=== PATIENT | female | born 1950 | race Caucasian/White ===

== ENCOUNTER 2018-01-20 10:33 | Inpatient (IN) ==
--- NOTE | 2018-01-20 10:53 | ED ---
HPI General Chief complaint: Weakness Stated complaint: Weakness Time Seen by Provider: 01/20/18 10:45 Source: patient and family Mode of arrival: ambulatory Limitations: no limitations History of Present Illness HPI Narrative: 67-year-old female patient with previous history of a stroke, presents to the ER today because she has noticed over the last few days that she has had increased trouble walking, feels like is her right leg is weaker, having some trouble talking, and has noticed some headaches. She denies any chest pains, trouble breathing, or any other symptoms. She is on daily baby aspirin. Related Data Home Medications Medication Instructions Recorded Confirmed aspirin [Aspir-81] 81 mg PO DAILY 01/20/18 01/20/18 clonazepam [Klonopin] 1 mg PO HS 01/20/18 01/20/18 glimepiride 4 mg PO QAM 01/20/18 01/20/18 lisinopril 5 mg PO DAILY 01/20/18 01/20/18 metformin 1,000 mg PO BID 01/20/18 01/20/18 simvastatin 5 mg PO QPM 01/20/18 01/20/18 zolpidem [Ambien] 10 mg PO HS 01/20/18 01/20/18 Allergies Allergy/AdvReac Type Severity Reaction Status Date / Time latex Allergy Hives Verified 01/20/18 10:47 Penicillins Allergy Shortness Verified 01/20/18 10:47 of Breath sulfamethoxazole Allergy Shortness Verified 01/20/18 10:47 [From Bactrim] of Breath trimethoprim [From Bactrim] Allergy Shortness Verified 01/20/18 10:47 of Breath Review of Systems Except as stated in HPI: all other systems reviewed are negative [facility] Medical History Medical History Anxiety (Acute) CVA (cerebral vascular accident) (Acute) Diabetes (Acute) H/O: hysterectomy (Acute) Hyperlipemia (Acute) Hypertension (Acute) Social History Social History Substance History: No History of Abuse Second Hand Smoke Exposure: No Smoking Status: Former smoker How Often Do You Have a Drink Containing Alcohol: Monthly or less Recent Out of Country Travel within the Last 8 Weeks: No Exam Narrative Exam Narrative: GENERAL: Well-developed elderly white female patient currently in moderate distress. Awake and oriented 3. SKIN: Focused skin assessment warm/dry. HEAD: Atraumatic. Normocephalic. EYES: Pupils equal and round. No scleral icterus. No injection or drainage. ENT: No nasal bleeding or discharge. Mucous membranes pink and moist. NECK: Trachea midline. No JVD. CARDIOVASCULAR: Regular rate and rhythm. No murmur appreciated. RESPIRATORY: No accessory muscle use. Clear to auscultation. Breath sounds equal bilaterally. GASTROINTESTINAL: Abdomen soft, non-tender, nondistended. Hepatic and splenic margins not palpable. MUSCULOSKELETAL: No obvious deformities. No clubbing. No cyanosis. No edema. NEUROLOGICAL: Awake and alert. No obvious cranial nerve deficits. Right-sided weakness, with right upper and lower extremity pronator drift. Normal speech. PSYCHIATRIC: Appropriate mood and affect; insight and judgment normal. Course Hospital Course: Initial CT of the brain was unremarkable. EKG did not show significant dysrhythmias. Lab work was fairly unremarkable. She does have some notable right-sided weakness and at this point my plan would be to admit her for further evaluation. Case was discussed with Dr. Rowan for admission. She was given aspirin in the ER. She is asking me to put in for an MRI for further evaluation as well. Initial Documented Vital Signs Temperature 98.4 F 01/20/18 10:42 Pulse Rate 57 L 01/20/18 10:42 Respiratory Rate 16 01/20/18 10:42 Blood Pressure 142/66 H 01/20/18 10:42 Pulse Oximetry 99 01/20/18 10:42 Last Documented Vital Signs Temperature 98.4 F 01/20/18 10:42 Pulse Rate 72 01/20/18 12:36 Respiratory Rate 16 01/20/18 10:42 Blood Pressure 152/66 H 01/20/18 12:36 Pulse Oximetry 96 01/20/18 11:13 Medical Decision Making MDM Narrative Medical decision making narrative: Patient symptoms started since last night, she would not be a TPA candidate. Patient had negative CAT scan and was treated with aspirin. Planning to admit for further evaluation and neurology evaluation. Patient is admitted to hospitalist service for admission. Differential Diagnosis Differential Diagnosis: CVA versus other acute intracranial processes versus electrolyte abnormalities Lab Data Result diagrams: 01/20/18 11:10 01/20/18 11:10 Lab Results 01/20/18 01/20/18 01/20/18 Range/Units 11:10 11:10 12:02 WBC 6.7 (4.0-11.0) th/mm3 RBC 4.01 (4.00-5.30) mil/mm3 Hgb 11.6 (11.6-15.3) gm/dL Hct 35.4 (35.0-46.0) % MCV 88.4 (80.0-100.0) fL MCH 29.0 (27.0-34.0) pg MCHC 32.8 (32.0-36.0) % RDW 14.4 (11.6-17.2) % Plt Count 219 (150-450) th/mm3 MPV 8.8 (7.0-11.0) fL Neut % (Auto) 61.8 (16.0-70.0) % Lymph % (Auto) 26.8 (9.0-44.0) % [place] % (Auto) 7.9 (0.0-8.0) % Eos % (Auto) 3.1 (0.0-4.0) % Baso % (Auto) 0.4 (0.0-2.0) % Neut # (Auto) 4.1 (1.8-7.7) th/mm3 Lymph # (Auto) 1.8 (1.0-4.8) th/mm3 [place] # (Auto) 0.5 (0.0-0.9) th/mm3 Eos # (Auto) 0.2 (0.0-0.4) th/mm3 Baso # (Auto) 0.0 (0.0-0.2) th/mm3 WBC Differential . Differential Comment Auto diff final Sodium 143 (136-145) meq/L Potassium 4.6 (3.5-5.1) meq/L Chloride 108 H (98-107) meq/L Carbon Dioxide 25.7 (21.0-32.0) meq/L Anion Gap 9 (5-15) meq/L BUN 15 (7-18) mg/dL Creatinine 1.01 H (0.50-1.00) mg/dL Estimated GFR 55 L (>89) mL/min Random Glucose 104 (74-106) mg/dL Calcium 9.0 (8.5-10.1) mg/dL Total Bilirubin 0.3 (0.2-1.0) mg/dL AST 12 L (15-37) U/L ALT 17 (10-53) U/L Alkaline Phosphatase 64 (45-117) U/L Troponin I Less than 0.02 L (0.02-0.05) ng/mL Total Protein 7.3 (6.4-8.2) g/dL Albumin 3.6 (3.4-5.0) g/dL Urine Color Yellow (Yellw/Straw) Urine Clarity Hazy H (Clear) Urine pH 5.0 (5.0-8.5) Ur Specific [place] 1.011 (1.002-1.035) Urine Protein Negative (Neg-Trace) mg/dL Urine Glucose (UA) Negative (Negative) mg/dL Urine Ketones Negative (Negative) mg/dL Urine Occult Blood Small H (Negative) Urine Nitrate Positive H (Negative) Urine Bilirubin Negative (Negative) Urine Urobilinogen Less than 2 (Less than 2) mg/dL Ur Leukocyte Esterase Trace H (Negative) Urine RBC Less than 1 (0-3) /hpf Urine WBC 13 H (0-5) /hpf Urine WBC Clumps Rare H (None) Ur Squamous Epith Cells 3 (0-5) /hpf Urine Bacteria Many H (None) /hpf Urine Mucus Few H (Occasional) /lpf Micro UA Comment Culture indicated Urine Culture Comments Culture indicated Imaging Data Radiologist's impression: Head CT 01/20/18 10:50 CONCLUSION: 1. Negative noncontrast head CT. Discharge Plan Discharge Disposition Patient Disposition: 30 Still Patient Discharge Condition Condition: Stable Discharge Details Anticipated Discharge Date: 01/20/18 Diagnosis: Acute CVA (cerebrovascular accident) Physicians Team ED Provider: Augustine Mac Primary Care Provider: Primary Care JustineiGhada Rxs /Orders / Referrals /Forms Prescriptions: No Action clonazepam [Klonopin] 1 mg Tablet 1 mg PO HS RF: 0 aspirin [Aspir-81] 81 mg Tablet,Delayed Release (Dr/Ec) 81 mg PO DAILY RF: 0 simvastatin 5 mg Tablet 5 mg PO QPM RF: 0 metformin 1,000 mg Tablet 1,000 mg PO BID RF: 0 glimepiride 4 mg Tablet 4 mg PO QAM RF: 0 lisinopril 5 mg Tablet 5 mg PO DAILY RF: 0 zolpidem [Ambien] 10 mg Tablet 10 mg PO HS RF: 0 Discharge Interventions Interventions: Vital Signs Last Done: 01/20/18 12:36 Status ED Status: With Doctor
[2018-01-20 11:32] LABS: Baso % (Auto) 0.4 % (0.0-2.0); Eos # (Auto) 0.2 th/mm3 (0.0-0.4); Eos % (Auto) 3.1 % (0.0-4.0); Hematocrit 35.4 % (35.0-46.0); Hemoglobin 11.6 gm/dL (11.6-15.3); Lymph # (Auto) 1.8 th/mm3 (1.0-4.8); Lymph % (Auto) 26.8 % (9.0-44.0); Mean Corpuscular HGB Conc 32.8 % (32.0-36.0); Mean Corpuscular Volume 88.4 fL (80.0-100.0); Mean Platelet Volume 8.8 fL (7.0-11.0); Mono # (Auto) 0.5 th/mm3 (0.0-0.9); Mono % (Auto) 7.9 % (0.0-8.0); Neut # (Auto) 4.1 th/mm3 (1.8-7.7); Neut % (Auto) 61.8 % (16.0-70.0); Platelet Count 219 th/mm3 (150-450); Red Blood Count 4.01 mil/mm3 (4.00-5.30); Red Cell Distribution Width 14.4 % (11.6-17.2); White Blood Count 6.7 th/mm3 (4.0-11.0)
--- NOTE | 2018-01-20 11:51 | CT ---
EXAM DATE: 01/20/2018 11:48 AM EDT AGE/SEX: 67 years / Female INDICATIONS: Increased weakness, difficulty ambulating, headache for 3 days CLINICAL DATA: This is the patient's initial encounter. Patient reports that signs and symptoms have been present for 1 day and indicates a pain score of 3/10. MEDICAL/SURGICAL HISTORY: Cerebrovascular disease. Diabetes. Hysterectomy. RADIATION DOSE: 35.79 CTDI (mGy) COMPARISON: No prior exams available for comparison. TECHNIQUE: CT of the head without contrast. Using automated exposure control and adjustment of the mA and/or kV according to patient size, radiation dose was kept as low as reasonably achievable to ob tain optimal diagnostic quality images. DICOM format image data is available electronically for revi ew and comparison. FINDINGS: Cerebrum: The ventricles are normal for age. No evidence of midline shift, mass lesion, hemorrhage or acute infarction. No extraaxial fluid collections are seen. Posterior Fossa: The cerebellum and brainstem are intact. The 4th ventricle is midline. The cerebe llopontine angle is unremarkable. Extracranial: The visualized portion of the orbits is intact. Skull: The calvaria is intact. No evidence of skull fracture. CONCLUSION: 1. Negative noncontrast head CT. Electronically signed by: Gerson Makcey MD 01/20/2018 11:50 AM EDT
[2018-01-20] MEDS ORDERED: Aspirin 325 MG Tablet PO ONE (11:52)
[2018-01-20 12:04] LABS: Anion Gap 9 meq/L (5-15); Blood Urea Nitrogen 15 mg/dL (7-18); Carbon Dioxide 25.7 meq/L (21.0-32.0); Chloride 108 meq/L (98-107); Potassium 4.6 meq/L (3.5-5.1); Sodium 143 meq/L (136-145)
[2018-01-20 12:05] LABS: Alanine Aminotransferase 17 U/L (10-53); Albumin 3.6 g/dL (3.4-5.0); Alkaline Phosphatase 64 U/L (45-117); Aspartate Aminotransferase 12 U/L (15-37); Glomerular Filtration Rate 55 mL/min (>89); Glucose,Random 104 mg/dL (74-106); Total Protein 7.3 g/dL (6.4-8.2)
[2018-01-20 12:30] LABS: Bacteria,Urine Many /hpf; Bilirubin,Urine Negative (Negative); Clarity,Urine Hazy (Clear); Color,Urine Yellow (Yellw/Straw); Glucose,Urine (UA) Negative (Negative); Leukocyte Esterase,Urine Trace (Negative); Mucus,Urine Few /lpf (Occasional); Nitrite,Urine Positive (Negative); Specific Gravity,Urine 1.011 (1.002-1.035); Squamous Epithelial Cell,Urine 3 /hpf (0-5)
[2018-01-20] MEDS ORDERED: Dextrose 5%/NaCl 0.9% Inj 1,000 ML IV.CONT SCH (13:30)
--- NOTE | 2018-01-20 14:35 | MR ---
EXAM DATE: 01/20/2018 2:15 PM EDT AGE/SEX: 67 years / Female INDICATIONS: Right sided weakness. CLINICAL DATA: This is the patient's initial encounter. Patient reports that signs and symptoms have been present for 1 day and indicates a pain score of 0/10. MEDICAL/SURGICAL HISTORY: Stroke. Diabetes mellitus type II. Hypertension. Hysterectomy. Blad wanda tack. Right shoulder. [place] [facility] [place]. . TECHNIQUE: Multiplanar, multisequence examination of the brain was performed without contrast. FINDINGS: Cerebrum: The ventricles are normal for age. No evidence of midline shift, mass lesion, hemorrhage or acute infarction. No extraaxial fluid collections are seen. The pituitary gland and suprasellar cistern are normal in configuration. White Matter: On the FLAIR weighted images there are are several small punctate areas of scattered i ncreased signal consistent with chronic small vessel ischemic changes. There is a small lacunar infar ct in the left basal ganglia. Posterior Fossa: The cerebellum and brainstem are intact. The 4th ventricle is midline. The cerebel lopontine angle is unremarkable. The cerebellar tonsils are normal in position. Diffusion Imaging: No focal areas of restricted diffusion are seen. No evidence of acute infarction . Extracranial: The visualized portions of the orbits and paranasal sinuses are unremarkable. CONCLUSION: 1. No acute hemorrhage, mass or evidence of infarction. 2. Small lacunar infarct in the left basal ganglia. 3. Mild atrophy and chronic small vessel ischemic change. Electronically signed by: Gerson Mackey MD 01/20/2018 2:33 PM EDT
[2018-01-20] MEDS: levoFLOXacin 500 MG Tablet PO SCH (14:36)
--- NOTE | 2018-01-20 15:26 | US ---
EXAM DATE: 01/20/2018 3:19 PM EDT AGE/SEX: 67 years / Female INDICATIONS: Transient ischemic attack. CLINICAL DATA: This is the patient's initial encounter. Patient reports that signs and symptoms have been present for 1 day and indicates a pain score of 0/10. MEDICAL/SURGICAL HISTORY: Stroke. Hypertension. Anxiety. Hyperlipidemia. Hysterectomy. COMPARISON: No prior exams available for comparison. VELOCITY PARAMETERS: ICA/CCA Ratio: Right 1.5 , Left 1.3 ICA: Right 138 cm/sec, Left 124 cm/sec CCA: Right 90 cm/sec, Left 98 cm/sec ECA: Right 206 cm/sec, Left 126 cm/sec Vertebral: Right 61 cm/sec antegrade, Left 88 cm/sec antegrade FINDINGS: Right Carotid: Mild arteriosclerotic plaque is visualized.The waveforms are within normal limits. Left Carotid: Mild to moderate arteriosclerotic plaque is visualized. The waveforms are within liliane l limits. Other: None. CONCLUSION: Mild to moderate plaquing with less than 40% diameter stenosis by velocity criteria. Electronically signed by: Gerson Mackey MD 01/20/2018 3:24 PM EDT
--- NOTE | 2018-01-20 16:21 | P.CONNEU ---
History of Present Illness Service: Neurology Primary Care Provider: No Primary Care Physician History of Present Illness: 67-year-old female admitted for possible stroke. Takes aspirin at home. CT brain scan no acute lesion. MRI brain scan does not show any acute stroke. Feels better now. History of previous stroke treated in the [place] area affected her right side when she is getting a lot of function back. Sounds like she may have gotten IV TPA at that time. Has history of diabetes hypertension dyslipidemia. Takes aspirin daily. Denies any history of atrial fibrillation or any clotting disorder. Review of Systems All other systems reviewed negative except as stated in [facility]PI [facility] - History History Provided By: Patient - Medical History Medical History: Medical History (Last Reviewed 01/21/18 @ 07:31 by Gerson Zhu) Anxiety CVA (cerebral vascular accident) Diabetes H/O: hysterectomy Hyperlipemia Hypertension - Tobacco History Second Hand Smoke Exposure: No Smoking Status: Former smoker - Alcohol History How Often Do You Have a Drink Containing Alcohol: Monthly or less - Substance Use History Substance History: No History of Abuse - Travel History Recent Travel Out of the Country Within the Last 8 Weeks: No - Immunization History Tetanus Immunization: <5 Years Hx Influenza Vaccine This Season: Yes Medications and Allergies Active Medications: Active Medications Dextrose/Sodium Chloride (D5w/Normal Saline Inj) 1,000 mls @ 70 mls/hr IV.CONT .[id number] [facility] Last Admin: 01/20/18 14:36 Dose: 70 mls/hr Levofloxacin (Levaquin) 500 mg PO Q24H [facility] Last Admin: 01/20/18 14:36 Dose: 500 mg Sodium Chloride (Ns Flush) 2 ml IV.FLUSH PRN PRN PRN Reason: FLUSH AFTER USING IV ACCESS Allergies Allergy/AdvReac Type Severity Reaction Status Date / Time latex Allergy Hives Verified 01/20/18 10:47 Penicillins Allergy Shortness Verified 01/20/18 10:47 of Breath sulfamethoxazole Allergy Shortness Verified 01/20/18 10:47 [From Bactrim] of Breath trimethoprim [From Bactrim] Allergy Shortness Verified 01/20/18 10:47 of Breath Home Medications Medication Instructions Recorded Confirmed Type aspirin [Aspir-81] 81 mg PO DAILY 01/20/18 01/20/18 History clonazepam [Klonopin] 1 mg PO HS 01/20/18 01/20/18 History glimepiride 4 mg PO QAM 01/20/18 01/20/18 History lisinopril 5 mg PO DAILY 01/20/18 01/20/18 History metformin 1,000 mg PO BID 01/20/18 01/20/18 History simvastatin 5 mg PO QPM 01/20/18 01/20/18 History zolpidem [Ambien] 10 mg PO HS 01/20/18 01/20/18 History Exam Vital signs: Vital Signs 01/20/18 10:42 01/20/18 11:13 01/20/18 12:36 Temperature 98.4 F Pulse Rate 57 L 72 Respiratory Rate 16 Blood Pressure 142/66 H 152/66 H Pulse Oximetry 99 96 Intake & Output 01/19/18 01/20/18 01/20/18 18:59 06:59 18:59 Weight 95.254 kg Narrative: GENERAL: Well nourished patient, in no apparent distress. SKIN: Warm and dry. HEAD: Atraumatic. Normocephalic. EYES: Pupils equal and round. No scleral icterus. No injection or drainage. ENT: Nose without drainage. NECK: Trachea midline. Neck is supple. CARDIOVASCULAR: Normal rate and regular rhythm without murmurs, RESPIRATORY: Symmetric, unlabored respirations. Breath sounds equal and clear to auscultation bilaterally. No wheezes, crackles, rales, or rhonchi. GASTROINTESTINAL: Abdomen soft, non-tender, non-distended. NEUROLOGICAL: Awake alert oriented 3 fluent articulate no aphasia. Extraocular movements intact no facial asymmetry tongue midline able raise upper extremity gravity without difficulty, no pronator drift - Constitutional no acute distress - Routine HEENT Exam Head: Present: normocephalic Eye: Present: EOMI Results - Labs CBC & Chem 7: 01/20/18 11:10 01/20/18 11:10 Labs: Laboratory Results - last 24 hr 01/20/18 01/20/18 01/20/18 11:10 11:10 12:02 WBC 6.7 RBC 4.01 Hgb 11.6 Hct 35.4 MCV 88.4 MCH 29.0 MCHC 32.8 RDW 14.4 Plt Count 219 MPV 8.8 Neut % (Auto) 61.8 Lymph % (Auto) 26.8 [place] % (Auto) 7.9 Eos % (Auto) 3.1 Baso % (Auto) 0.4 Neut # (Auto) 4.1 Lymph # (Auto) 1.8 [place] # (Auto) 0.5 Eos # (Auto) 0.2 Baso # (Auto) 0.0 WBC Differential . Differential Comment Auto diff final Sodium 143 Potassium 4.6 Chloride 108 H Carbon Dioxide 25.7 Anion Gap 9 BUN 15 Creatinine 1.01 H Estimated GFR 55 L Random Glucose 104 Calcium 9.0 Total Bilirubin 0.3 AST 12 L ALT 17 Alkaline Phosphatase 64 Troponin I Less than 0.02 L Total Protein 7.3 Albumin 3.6 Urine Color Yellow Urine Clarity Hazy H Urine pH 5.0 Ur Specific [place] 1.011 Urine Protein Negative Urine Glucose (UA) Negative Urine Ketones Negative Urine Occult Blood Small H Urine Nitrate Positive H Urine Bilirubin Negative Urine Urobilinogen Less than 2 Ur Leukocyte Esterase Trace H Urine RBC Less than 1 Urine WBC 13 H Urine WBC Clumps Rare H Ur Squamous Epith Cells 3 Urine Bacteria Many H Urine Mucus Few H Micro UA Comment Culture indicated Urine Culture Comments Culture indicated - Imaging Impressions Carotid Doppler Study 01/20/18 00:00 CONCLUSION: Mild to moderate plaquing with less than 40% diameter stenosis by velocity criteria. Head CT 01/20/18 10:50 CONCLUSION: 1. Negative noncontrast head CT. Head MRI 01/20/18 13:21 CONCLUSION: 1. No acute hemorrhage, mass or evidence of infarction. 2. Small lacunar infarct in the left basal ganglia. 3. Mild atrophy and chronic small vessel ischemic change. Review/Management - Diagnosis (1) TIA (transient ischemic attack) Code(s): G45.9 - Transient cerebral ischemic attack, unspecified Status: Acute Current Visit: Yes (2) Diabetes Code(s): E11.9 - Type 2 diabetes mellitus without complications Status: Acute Current Visit: Yes (3) Hypertension Code(s): I10 - Essential (primary) hypertension Status: Acute Current Visit : Yes (4) Obesity Code(s): E66.9 - Obesity, unspecified Status: Acute Current Visit: Yes (5) Hyperlipidemia associated with type 2 diabetes mellitus Code(s): E11.69 - Type 2 diabetes mellitus with other specified complication; E78.5 - Hyperlipidemia, unspecified Status: Acute Current Visit: Yes - Review/Management Plan: Probable TIA Recommendations Add Plavix to aspirin Follow-up rest of studies Hypertension, diabetic, lipid control Exercise Weight loss (1) TIA (transient ischemic attack) Qualifiers: Transient cerebral ischemia type: carotid artery syndrome (hemispheric) Qualified Code(s): G45.1 - Carotid artery syndrome (hemispheric) (2) Diabetes Qualifiers: Diabetes mellitus type: other specified (including ANN-MARIE) Diabetes mellitus complication detail: with polyneuropathy (3) Hypertension Qualifiers: Hypertension type: essential hypertension Qualified Code(s): I10 - Essential (primary) hypertension (4) Obesity Qualifiers: Obesity classification: adult class 2 (BMI 35 - 39.9)
[2018-01-20] MEDS ORDERED: Enoxaparin Inj 40 MG/0.4 ML Syringe SQ SCH (16:30)
[2018-01-20] MEDS: Enoxaparin Inj 40 MG/0.4 ML Syringe SQ SCH (17:21)
[2018-01-20] MEDS: Sod Chloride 0.9% Inj 1,000 ML IV.CONT SCH (17:22)
--- NOTE | 2018-01-20 17:31 | MR ---
EXAM DATE: 01/20/2018 5:16 PM EDT AGE/SEX: 67 years / Female INDICATIONS: Aneurysm. CLINICAL DATA: This is the patient's initial encounter. Patient reports that signs and symptoms have been present for 1 day and indicates a pain score of 2/10. MEDICAL/SURGICAL HISTORY: Hypercholesterolemia. Hypertension. Skin cancer. Hysterectomy. Knee sx, Rt shoulder sx, Bladder sling. COMPARISON: MRI of the brain 01/20/2018. TECHNIQUE: 3D [id number] MRA was performed. Source images, multiplanar STS MIP, and 3D volum e MIP reconstructions were reviewed. FINDINGS: There is excellent visualization of the major intracranial arteries out to the second-order branch ve ssels. Tandem areas of moderate luminal narrowing secondary to atherosclerotic plaque involving proxi mal M2 branches on the right. The left vertebral artery is dominant and the main supply to the basila r. Persistent circulation noted on the right. There is no evidence for aneurysm, vessel truncat ion , and no evidence for vascular malformation. CONCLUSION: 1. Atherosclerotic disease. 2. No acute intracranial abnormality. Electronically signed by: Rudolph Copeland MD 01/20/2018 5:30 PM EDT
--- NOTE | 2018-01-20 18:11 | ECG ---
Date Performed: 01/20/2018 Time Performed: 11:27:29 PTAGE: 67 years EKG: SINUS BRADYCARDIA LOW QRS VOLTAGE IN PRECORDIAL LEADS SEPTAL MYOCARDIAL INFARCTION ABNORMAL ECG NO PREVIOUS TRACING DOCTOR: Denia Milligan Interpretating Date/Time 01/20/2018 18:09:20
--- NOTE | 2018-01-20 18:46 | P.HP ---
[facility]ness [facility]: Patient is from [facility] here visiting Chief Complaint: Right-sided weakness History of Present Illness: Patient is a very pleasant 67-year-old right-handed female who is visiting here visiting from [place] for vacation. 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 Patient also with history of anxiety disorder. Patient states that for the past 2 days now daughter has noticed that she has been dropping things with her right hand and was noted to be dragging her right leg. Whenever she gets up she does not get enough strength to get up but. Patient also complained of some intermittent right-sided parieto-occipital headache dull in character. Denies any nausea vomiting or fever. This a.m. granddaughter noted some drooping in his in her right eye and alarmed her parents who finally 5 mg up on her and finally convinced her to come to the emergency room. Patient admitted for further evaluation On exam now patient states that her right-sided weakness is baseline near baseline from her CVA from 2013. Inpatient Certification: I certify that the inpatient services were ordered in accordance with Medicare regulations governing the order. This includes certification that hospital inpatient services are reasonable and necessary and in the case of services not specified as inpatient-only under 42 CFR 419.22(n), that they are appropriately provided as inpatient services in accordance to with the 2-midnight benchmark under 43 CFR 412.3(e) Estimated Total Length of Stay (Days): 2 Plans for Post Hospital Care: Not yet determined Review of Systems All other systems reviewed negative except as stated in HPI PMFSH - History History Provided By: Patient - Medical History Medical History: Medical History (Last Reviewed 01/21/18 @ 07:31 by Gerson Zhu) Anxiety CVA (cerebral vascular accident) Diabetes H/O: hysterectomy Hyperlipemia Hypertension - Tobacco History Second Hand Smoke Exposure: No Tobacco Use In Past 30 Days: No Smoking Status: Never smoker - Alcohol History How Often Do You Have a Drink Containing Alcohol: Monthly or less - Substance Use History Substance History: No History of Abuse - Travel History Recent Travel Out of the Country Within the Last 8 Weeks: No - Immunization History Tetanus Immunization: <5 Years Hx Influenza Vaccine This Season: Yes Medications and Allergies Active Medications: Active Medications Aspirin (Ecotrin) 325 mg PO DAILY [facility] Clopidogrel Bisulfate (Plavix) 75 mg PO DAILY [facility] Last Admin: 01/20/18 17:21 Dose: Not Given Enoxaparin Sodium (Lovenox Inj) 40 mg SQ DAILY [facility] Last Admin: 01/20/18 17:21 Dose: Not Given Dextrose/Sodium Chloride (D5w/Normal Saline Inj) 1,000 mls @ 70 mls/hr IV.CONT .[id number] [facility] Last Infusion: 01/20/18 17:35 Dose: 0 mls/hr Sodium Chloride (Ns Inj) 1,000 mls @ 84 mls/hr IV.CONT .[id number] [facility] Last Infusion: 01/20/18 17:34 Dose: 84 mls/hr Levofloxacin (Levaquin) 500 mg PO Q24H [facility] Last Admin: 01/20/18 14:36 Dose: 500 mg Sodium Chloride (Ns Flush) 2 ml IV.FLUSH PRN PRN PRN Reason: FLUSH AFTER USING IV ACCESS Allergies Allergy/AdvReac Type Severity Reaction Status Date / Time latex Allergy Hives Verified 01/20/18 10:47 Penicillins Allergy Shortness Verified 01/20/18 10:47 of Breath sulfamethoxazole Allergy Shortness Verified 01/20/18 10:47 [From Bactrim] of Breath trimethoprim [From Bactrim] Allergy Shortness Verified 01/20/18 10:47 of Breath Home Medications Medication Instructions Recorded Confirmed Type aspirin [Aspir-81] 81 mg PO DAILY 01/20/18 01/20/18 History clonazepam [Klonopin] 1 mg PO HS 01/20/18 01/20/18 History glimepiride 4 mg PO QAM 01/20/18 01/20/18 History lisinopril 5 mg PO DAILY 01/20/18 01/20/18 History metformin 1,000 mg PO BID 01/20/18 01/20/18 History simvastatin 5 mg PO QPM 01/20/18 01/20/18 History zolpidem [Ambien] 10 mg PO HS 01/20/18 01/20/18 History Exam Vital signs: Vital Signs 01/20/18 10:42 01/20/18 11:13 01/20/18 12:36 Temperature 98.4 F Pulse Rate 57 L 72 Respiratory Rate 16 Blood Pressure 142/66 H 152/66 H Pulse Oximetry 99 96 01/20/18 17:30 01/20/18 18:15 Temperature 97.8 F Pulse Rate 63 68 Respiratory Rate 14 24 Blood Pressure 125/68 132/60 Pulse Oximetry 96 97 Intake & Output 01/19/18 01/20/18 01/20/18 18:59 06:59 18:59 Weight 95.254 kg Narrative: Patient is awake alert oriented 3 with clear coherent speech not in acute distress Anicteric sclerae pink palpebral conjunctiva Neck supple no JVD no bruit Chest lungs clear breath sounds no rales no wheezes heart regular rhythm, no murmur Abdomen soft nontender with good bowel bowel sounds Lower extremities no edema no clubbing no cyanosis good peripheral pulses Neurologic exam Awake alert oriented 3 clear speech Cranial nerves grossly intact no deficit Sensory intact grossly Motor mild right-sided weakness which patient states he is near her baseline. Absent Babinski Results - Labs CBC & Chem 7: 01/20/18 11:10 01/20/18 11:10 Labs: Laboratory Results - last 24 hr 01/20/18 01/20/18 01/20/18 11:10 11:10 11:10 WBC 6.7 RBC 4.01 Hgb 11.6 Hct 35.4 MCV 88.4 MCH 29.0 MCHC 32.8 RDW 14.4 Plt Count 219 MPV 8.8 Neut % (Auto) 61.8 Lymph % (Auto) 26.8 [place] % (Auto) 7.9 Eos % (Auto) 3.1 Baso % (Auto) 0.4 Neut # (Auto) 4.1 Lymph # (Auto) 1.8 [place] # (Auto) 0.5 Eos # (Auto) 0.2 Baso # (Auto) 0.0 WBC Differential . Differential Comment Auto diff final Sodium 143 Potassium 4.6 Chloride 108 H Carbon Dioxide 25.7 Anion Gap 9 BUN 15 Creatinine 1.01 H Estimated GFR 55 L Random Glucose 104 Calcium 9.0 Total Bilirubin 0.3 AST 12 L ALT 17 Alkaline Phosphatase 64 Troponin I Less than 0.02 L Total Protein 7.3 Albumin 3.6 Vitamin B12 263 Urine Color Urine Clarity Urine pH Ur Specific [place] Urine Protein Urine Glucose (UA) Urine Ketones Urine Occult Blood Urine Nitrate Urine Bilirubin Urine Urobilinogen Ur Leukocyte Esterase Urine RBC Urine WBC Urine WBC Clumps Ur Squamous Epith Cells Urine Bacteria Urine Mucus Micro UA Comment Urine Culture Comments 01/20/18 12:02 WBC RBC Hgb Hct MCV MCH MCHC RDW Plt Count MPV Neut % (Auto) Lymph % (Auto) [place] % (Auto) Eos % (Auto) Baso % (Auto) Neut # (Auto) Lymph # (Auto) [place] # (Auto) Eos # (Auto) Baso # (Auto) WBC Differential Differential Comment Sodium Potassium Chloride Carbon Dioxide Anion Gap BUN Creatinine Estimated GFR Random Glucose Calcium Total Bilirubin AST ALT Alkaline Phosphatase Troponin I Total Protein Albumin Vitamin B12 Urine Color Yellow Urine Clarity Hazy H Urine pH 5.0 Ur Specific [place] 1.011 Urine Protein Negative Urine Glucose (UA) Negative Urine Ketones Negative Urine Occult Blood Small H Urine Nitrate Positive H Urine Bilirubin Negative Urine Urobilinogen Less than 2 Ur Leukocyte Esterase Trace H Urine RBC Less than 1 Urine WBC 13 H Urine WBC Clumps Rare H Ur Squamous Epith Cells 3 Urine Bacteria Many H Urine Mucus Few H Micro UA Comment Culture indicated Urine Culture Comments Culture indicated - Imaging Impressions Carotid Doppler Study 01/20/18 00:00 CONCLUSION: Mild to moderate plaquing with less than 40% diameter stenosis by velocity criteria. Head CT 01/20/18 10:50 CONCLUSION: 1. Negative noncontrast head CT. Head MRI 01/20/18 13:21 CONCLUSION: 1. No acute hemorrhage, mass or evidence of infarction. 2. Small lacunar infarct in the left basal ganglia. 3. Mild atrophy and chronic small vessel ischemic change. Head MRA 01/20/18 16:21 CONCLUSION: 1. Atherosclerotic disease. 2. No acute intracranial abnormality. Caprini VTE Risk Assessment Caprini VTE Risk Assessment: Moderate/High Risk (score >= 2) Caprini Risk Assessment Model: Point Value = 1 Point Value = 2 Point Value = 3 Point Value = 5 Age 41-60 Minor surgery BMI > 25 kg/m2 Swollen legs Varicose veins or History of unexplained or recurrent spontaneous Oral contraceptives or hormone replacement Sepsis (< 1 month) Serious lung disease, including pneumonia (< 1 month) Abnormal pulmonary function Acute myocardial infarction Congestive heart failure (< 1 month) History of inflammatory bowel disease Medical patient at bed rest Age 61-74 Arthroscopic surgery Major open surgery (> 45 min) Laparoscopic surgery (> 45 min) Malignancy Confined to bed (> 72 hours) Immobilizing plaster cast Central venous access Age >= 75 History of VTE Family history of VTE Factor V Leiden Prothrombin [id number] Lupus anticoagulant Anticardiolipin antibodies Elevated serum homocysteine Heparin-induced thrombocytopenia Other congenital or acquired thrombophilia Stroke (< 1 month) Elective arthroplasty Hip, pelvis, or leg fracture Acute spinal cord injury (< 1 month) Prophylaxis Regimen: Total Risk Factor Score Risk Level Prophylaxis Regimen 0-1 Low Early ambulation 2 Moderate Order ONE of the following: *Sequential Compression Device (SCD) *Heparin 5000 units SQ BID 3-4 Higher Order ONE of the following medications: *Heparin 5000 units SQ TID *Enoxaparin/Lovenox 40 mg SQ daily (WT < 150 kg, CrCl > 30 mL/min) *Enoxaparin/Lovenox 30 mg SQ daily (WT < 150 kg, CrCl > 10-29 mL/min) *Enoxaparin/Lovenox 30 mg SQ BID (WT < 150 kg, CrCl > 30 mL/min) AND/OR *Sequential Compression Device (SCD) 5 or more Highest Order ONE of the following medications: *Heparin 5000 units SQ TID (Preferred with Epidurals) *Enoxaparin/Lovenox 40 mg SQ daily (WT < 150 kg, CrCl > 30 mL/min) *Enoxaparin/Lovenox 30 mg SQ daily (WT < 150 kg, CrCl > 10-29 mL/min) *Enoxaparin/Lovenox 30 mg SQ BID (WT < 150 kg, CrCl > 30 mL/min) AND *Sequential Compression Device (SCD) Assessment and Plan - Plan 67-year-old female with notable risk factors admitted for TIA vs CVA left BG infarct with history of old CVA with mild residual right- sided weakness from September 2013 -MRI shows a small left basal ganglia infarct ? old -neuro exam near baseline -Workup in progress carotid Doppler, Echo, telemetry -Neurology consulted and was seen by Dr. Langford while started on Plavix and aspirin -PT OT consult. History of hypertension -Continue lisinopril 5 mg daily History of hyperlipidemia. Continue simvastatin 5 mg at bedtime History of diabetes type 2 per patient last A1c was 5.6 -Will hold on off metformin with recent contrast study -Follow blood sugars bid and record - restart Glimepiride in am Anxiety disorder. -Continue on clonazepam 1 mg at bedtime. -Ambien 10 mg at bedtime as needed UTI. -Start on Levaquin 500 milligrams p.o. daily - Follow final [employer] result Lovenox for DVT prophylaxis.
[2018-01-20] MEDS ORDERED: Dextrose 50% in Water 50 ML Vial IV.PUSH PRN (19:16)
[2018-01-20] MEDS ORDERED: clonazePAM 1 MG Tablet PO SCH (21:00)
[2018-01-21] MEDS: Sod Chloride 0.9% Inj 1,000 ML IV.CONT SCH ×2 (06:45→19:56)
[2018-01-21] MEDS: Enoxaparin Inj 40 MG/0.4 ML Syringe SQ SCH (08:09)
--- NOTE | 2018-01-21 08:29 | P.PNNEU ---
Subjective Subjective Comments: No acute events reported No headache No chest pain No dyspnea Active Medications: Active Medications Aspirin (Ecotrin) 325 mg PO DAILY [facility]S [facility] Last Admin: 01/21/18 08:08 Dose: 325 mg Clonazepam (Klonopin) 1 mg PO HS [facility]S INCLUDE 234 BEDS AT THE [facility] Last Admin: 01/20/18 21:25 Dose: 1 mg Clopidogrel Bisulfate (Plavix) 75 mg PO DAILY [facility] 234 BEDS AT THE [facility] Last Admin: 01/21/18 08:08 Dose: 75 mg Dextrose (D50w Vial) 50 ml IV.PUSH UNSCH PRN PRN Reason: PER HYPOGLYCEMIA PROTOCOL Enoxaparin Sodium (Lovenox Inj) 40 mg SQ DAILY [facility] 234 BEDS AT THE [facility] Last Admin: 01/21/18 08:09 Dose: 40 mg Glucagon (Glucagon Inj) 1 mg OTHER PRN PRN PRN Reason: for Hypoglycemia Protocol Sodium Chloride (Ns Inj) 1,000 mls @ 84 mls/hr IV.CONT .[id number] [facility]S [facility]CLUDE 234 BEDS AT THE [facility] Last Admin: 01/21/18 06:45 Dose: Not Given Levofloxacin (Levaquin) 500 mg PO Q24H [facility] 234 BEDS AT THE [facility] Last Admin: 01/20/18 14:36 Dose: 500 mg Lisinopril (Prinivil) 5 mg PO DAILY [facility] 234 BEDS AT THE [facility] Last Admin: 01/21/18 08:09 Dose: 5 mg Pravastatin Sodium (Pravachol) 10 mg PO QPM [facility]S [facility]CLUDE 234 BEDS AT THE [facility] Sodium Chloride (Ns Flush) 2 ml IV.FLUSH PRN PRN PRN Reason: FLUSH AFTER USING IV ACCESS Zolpidem Tartrate (Ambien) 10 mg PO HS [facility]CLUDE 234 BEDS AT THE [facility] Last Admin: 01/20/18 21:25 Dose: 10 mg Allergies/Adverse Reactions: Allergies Allergy/AdvReac Type Severity Reaction Status Date / Time latex Allergy Hives Verified 01/20/18 10:47 Penicillins Allergy Shortness Verified 01/20/18 10:47 of Breath sulfamethoxazole Allergy Shortness Verified 01/20/18 10:47 [From Bactrim] of Breath trimethoprim [From Bactrim] Allergy Shortness Verified 01/20/18 10:47 of Breath Review of Systems All other systems reviewed negative except as stated in HPI Physical Exam Vital signs: Vital Signs 01/20/18 10:42 01/20/18 11:13 01/20/18 12:36 Temperature 98.4 F Pulse Rate 57 L 72 Respiratory Rate 16 Blood Pressure 142/66 H 152/66 H Pulse Oximetry 99 96 01/20/18 17:30 01/20/18 18:15 01/20/18 22:00 Temperature 97.8 F 98.4 F Pulse Rate 63 68 64 Respiratory Rate 14 24 17 Blood Pressure 125/68 132/60 139/63 Pulse Oximetry 96 97 96 01/21/18 00:30 01/21/18 05:30 Temperature 97.9 F 98 F Pulse Rate 60 62 Respiratory Rate 17 16 Blood Pressure 130/60 120/59 L Pulse Oximetry 98 100 Intake & Output 01/20/18 01/21/18 01/21/18 18:59 06:59 18:59 Intake Total 1200 / 1200 Balance 1200 / 1200 Weight 95.254 kg 95.2 kg Intake: Oral 1200 / 1200 Other: # Voids 2 1 Date of Last Bowel Movement 01/21/18 # Bowel Movements 0 Narrative: GENERAL: Well nourished patient, in no apparent distress. SKIN: Warm and dry. HEAD: Atraumatic. Normocephalic. EYES: Pupils equal and round. No scleral icterus. No injection or drainage. ENT: Nose without drainage. NECK: Trachea midline. Neck is supple. CARDIOVASCULAR: Normal rate and regular rhythm without murmurs, RESPIRATORY: Symmetric, unlabored respirations. Breath sounds equal and clear to auscultation bilaterally. No wheezes, crackles, rales, or rhonchi. GASTROINTESTINAL: Abdomen soft, non-tender, non-distended. NEUROLOGICAL: Awake alert oriented 3 fluent articulate no aphasia. Extraocular movements intact no facial asymmetry tongue midline able raise upper extremity gravity without difficulty, no pronator drift, distal reduce pinprick in her legs probable diabetic neuropathy - Constitutional no acute distress - Routine HEENT Exam Head: Present: normocephalic, atraumatic Eye: Present: EOMI Objective Laboratory Results - last 24 hr 01/20/18 01/20/18 01/20/18 11:10 11:10 11:10 WBC 6.7 RBC 4.01 Hgb 11.6 Hct 35.4 MCV 88.4 MCH 29.0 MCHC 32.8 RDW 14.4 Plt Count 219 MPV 8.8 Neut % (Auto) 61.8 Lymph % (Auto) 26.8 [place] % (Auto) 7.9 Eos % (Auto) 3.1 Baso % (Auto) 0.4 Neut # (Auto) 4.1 Lymph # (Auto) 1.8 [place] # (Auto) 0.5 Eos # (Auto) 0.2 Baso # (Auto) 0.0 WBC Differential . Differential Comment Auto diff final Sodium 143 Potassium 4.6 Chloride 108 H Carbon Dioxide 25.7 Anion Gap 9 BUN 15 Creatinine 1.01 H Estimated GFR 55 L POC Glucose Random Glucose 104 Calcium 9.0 Total Bilirubin 0.3 AST 12 L ALT 17 Alkaline Phosphatase 64 Troponin I Less than 0.02 L Total Protein 7.3 Albumin 3.6 Vitamin B12 263 Urine Color Urine Clarity Urine pH Ur Specific [place] Urine Protein Urine Glucose (UA) Urine Ketones Urine Occult Blood Urine Nitrate Urine Bilirubin Urine Urobilinogen Ur Leukocyte Esterase Urine RBC Urine WBC Urine WBC Clumps Ur Squamous Epith Cells Urine Bacteria Urine Mucus Micro UA Comment Urine Culture Comments 01/20/18 01/21/18 12:02 07:56 WBC RBC Hgb Hct MCV MCH MCHC RDW Plt Count MPV Neut % (Auto) Lymph % (Auto) [place] % (Auto) Eos % (Auto) Baso % (Auto) Neut # (Auto) Lymph # (Auto) [place] # (Auto) Eos # (Auto) Baso # (Auto) WBC Differential Differential Comment Sodium Potassium Chloride Carbon Dioxide Anion Gap BUN Creatinine Estimated GFR POC Glucose 83 Random Glucose Calcium Total Bilirubin AST ALT Alkaline Phosphatase Troponin I Total Protein Albumin Vitamin B12 Urine Color Yellow Urine Clarity Hazy H Urine pH 5.0 Ur Specific [place] 1.011 Urine Protein Negative Urine Glucose (UA) Negative Urine Ketones Negative Urine Occult Blood Small H Urine Nitrate Positive H Urine Bilirubin Negative Urine Urobilinogen Less than 2 Ur Leukocyte Esterase Trace H Urine RBC Less than 1 Urine WBC 13 H Urine WBC Clumps Rare H Ur Squamous Epith Cells 3 Urine Bacteria Many H Urine Mucus Few H Micro UA Comment Culture indicated Urine Culture Comments Culture indicated Review/Management - Diagnosis (1) TIA (transient ischemic attack) Code(s): G45.9 - Transient cerebral ischemic attack, unspecified Status: Acute Current Visit: Yes (2) Diabetes Code(s): E11.9 - Type 2 diabetes mellitus without complications Status: Acute Current Visit: Yes (3) Hypertension Code(s): I10 - Essential (primary) hypertension Status: Acute Current Visit : Yes (4) Obesity Code(s): E66.9 - Obesity, unspecified Status: Acute Current Visit: Yes (5) Hyperlipidemia associated with type 2 diabetes mellitus Code(s): E11.69 - Type 2 diabetes mellitus with other specified complication; E78.5 - Hyperlipidemia, unspecified Status: Acute Current Visit: Yes - Review/Management Plan: Probable TIA MRI brain negative for acute stroke diffusion-weighted imaging negative MRA brain intracranial atherosclerotic disease Carotid ultrasound less than 50% stenosis Recommendations Add Plavix to aspirin. Aspirin can be discontinued after 3 months Follow-up rest of studies Hypertension, diabetic, lipid control Exercise Weight loss Can be discharged from neurologic standpoint followed up in the outpatient setting by her physicians in [place] where she is from. Where she should consider getting a loop recorder event monitor (1) TIA (transient ischemic attack) Qualifiers: Transient cerebral ischemia type: carotid artery syndrome (hemispheric) Qualified Code(s): G45.1 - Carotid artery syndrome (hemispheric) (2) Diabetes Qualifiers: Diabetes mellitus type: other specified (including ANN-MARIE) Diabetes mellitus complication detail: with polyneuropathy (3) Hypertension Qualifiers: Hypertension type: essential hypertension Qualified Code(s): I10 - Essential (primary) hypertension (4) Obesity Qualifiers: Obesity classification: adult class 2 (BMI 35 - 39.9)
[2018-01-21] MEDS ORDERED: Lisinopril 5 MG Tablet PO SCH (09:00)
[2018-01-21 09:27] LABS: Chol/HDL Ratio 3.65 Ratio; HDL Cholesterol 35.3 mg/dL (40.0-60.0)
--- NOTE | 2018-01-21 09:58 | P.PN ---
Subjective Interval history: overnight- no acute events feels great up and ambulating no headaches good BS readings Physical Exam Vital signs: Vital Signs 01/20/18 10:42 01/20/18 11:13 01/20/18 12:36 Temperature 98.4 F Pulse Rate 57 L 72 Respiratory Rate 16 Blood Pressure 142/66 H 152/66 H Pulse Oximetry 99 96 01/20/18 17:30 01/20/18 18:15 01/20/18 22:00 Temperature 97.8 F 98.4 F Pulse Rate 63 68 64 Respiratory Rate 14 24 17 Blood Pressure 125/68 132/60 139/63 Pulse Oximetry 96 97 96 01/21/18 00:30 01/21/18 05:30 Temperature 97.9 F 98 F Pulse Rate 60 62 Respiratory Rate 17 16 Blood Pressure 130/60 120/59 L Pulse Oximetry 98 100 Intake & Output 01/20/18 01/21/18 01/21/18 18:59 06:59 18:59 Intake Total 1200 / 1200 Balance 1200 / 1200 Weight 95.254 kg 95.2 kg Intake: Oral 1200 / 1200 Other: # Voids 2 1 Date of Last Bowel Movement 01/21/18 # Bowel Movements 0 Narrative: awake and alert, speech clear, in no apparent distress. SKIN: Warm and dry. HEAD: Atraumatic. Normocephalic. EYES: Pupils equal and round. No scleral icterus. No injection or drainage. ENT: Nose without drainage. NECK: Trachea midline. Neck is supple. CARDIOVASCULAR: Normal rate and regular rhythm without murmurs, RESPIRATORY: Breath sounds equal and clear to auscultation bilaterally. No wheezes, crackles, rales, or rhonchi. GASTROINTESTINAL: Abdomen soft, non-tender, non-distended. NEUROLOGICAL: Awake alert oriented 3 fluent articulate no aphasia. Extraocular movements intact no facial asymmetry tongue midline able raise upper extremity gravity without difficulty, gait steady Results - Labs CBC & Chem 7: 01/20/18 11:10 01/20/18 11:10 Laboratory Results - last 24 hr 01/20/18 01/20/18 01/20/18 11:10 11:10 11:10 WBC 6.7 RBC 4.01 Hgb 11.6 Hct 35.4 MCV 88.4 MCH 29.0 MCHC 32.8 RDW 14.4 Plt Count 219 MPV 8.8 Neut % (Auto) 61.8 Lymph % (Auto) 26.8 [place] % (Auto) 7.9 Eos % (Auto) 3.1 Baso % (Auto) 0.4 Neut # (Auto) 4.1 Lymph # (Auto) 1.8 [place] # (Auto) 0.5 Eos # (Auto) 0.2 Baso # (Auto) 0.0 WBC Differential . Differential Comment Auto diff final Sodium 143 Potassium 4.6 Chloride 108 H Carbon Dioxide 25.7 Anion Gap 9 BUN 15 Creatinine 1.01 H Estimated GFR 55 L POC Glucose Random Glucose 104 Calcium 9.0 Total Bilirubin 0.3 AST 12 L ALT 17 Alkaline Phosphatase 64 Troponin I Less than 0.02 L Total Protein 7.3 Albumin 3.6 Triglycerides Cholesterol LDL Cholesterol, Calc HDL Cholesterol Cholesterol/HDL Ratio Vitamin B12 263 Urine Color Urine Clarity Urine pH Ur Specific [place] Urine Protein Urine Glucose (UA) Urine Ketones Urine Occult Blood Urine Nitrate Urine Bilirubin Urine Urobilinogen Ur Leukocyte Esterase Urine RBC Urine WBC Urine WBC Clumps Ur Squamous Epith Cells Urine Bacteria Urine Mucus Micro UA Comment Urine Culture Comments 01/20/18 01/21/18 01/21/18 12:02 07:30 07:56 WBC RBC Hgb Hct MCV MCH MCHC RDW Plt Count MPV Neut % (Auto) Lymph % (Auto) [place] % (Auto) Eos % (Auto) Baso % (Auto) Neut # (Auto) Lymph # (Auto) [place] # (Auto) Eos # (Auto) Baso # (Auto) WBC Differential Differential Comment Sodium Potassium Chloride Carbon Dioxide Anion Gap BUN Creatinine Estimated GFR POC Glucose 83 Random Glucose Calcium Total Bilirubin AST ALT Alkaline Phosphatase Troponin I Total Protein Albumin Triglycerides 88 Cholesterol 129 LDL Cholesterol, Calc 76 HDL Cholesterol 35.3 L Cholesterol/HDL Ratio 3.65 Vitamin B12 Urine Color Yellow Urine Clarity Hazy H Urine pH 5.0 Ur Specific [place] 1.011 Urine Protein Negative Urine Glucose (UA) Negative Urine Ketones Negative Urine Occult Blood Small H Urine Nitrate Positive H Urine Bilirubin Negative Urine Urobilinogen Less than 2 Ur Leukocyte Esterase Trace H Urine RBC Less than 1 Urine WBC 13 H Urine WBC Clumps Rare H Ur Squamous Epith Cells 3 Urine Bacteria Many H Urine Mucus Few H Micro UA Comment Culture indicated Urine Culture Comments Culture indicated - Imaging Impressions Carotid Doppler Study 01/20/18 00:00 CONCLUSION: Mild to moderate plaquing with less than 40% diameter stenosis by velocity criteria. Head CT 01/20/18 10:50 CONCLUSION: 1. Negative noncontrast head CT. Head MRI 01/20/18 13:21 CONCLUSION: 1. No acute hemorrhage, mass or evidence of infarction. 2. Small lacunar infarct in the left basal ganglia. 3. Mild atrophy and chronic small vessel ischemic change. Head MRA 01/20/18 16:21 CONCLUSION: 1. Atherosclerotic disease. 2. No acute intracranial abnormality. Assessment and Plan - Plan 67-year-old female with notable risk factors admitted for TIA with history of old CVA with mild residual right-sided weakness from September 2013 -MRI shows a small left basal ganglia infarct ? sylvia old -neuro exam unremarkable- -Workup in progress carotid Doppler stenosis less than 50 %, Echo- pending , telemetry- in SR -Neurology - ff- Dr. Langford while started on Plavix and aspirin/ DC ASA in 3 months -PT OTff History of hypertension -Continue lisinopril 5 mg daily History of hyperlipidemia. Continue simvastatin 5 mg at bedtime History of diabetes type 2 per patient last A1c was 5.6 -Will hold on off metformin with recent contrast study -Follow blood sugars bid and record - restart Glimepiride as OP Anxiety disorder. -Continue on clonazepam 1 mg at bedtime. -Ambien 10 mg at bedtime as needed UTI. -Start on Levaquin 500 milligrams p.o. daily - Follow final [employer] result- pending Lovenox for DVT prophylaxis. Up and ambulate DC today reshmardarvin ECGHO results back
--- NOTE | 2018-01-21 16:44 | ECHRPT ---
Indication: CVA/TIA CONCLUSIONS Normal left ventricular size. Wall thickness is normal. The left ventricular systolic function is normal with an estimated ejection fraction of 55%. There is trace tricuspid valve regurgitation. The estimated pulmonary arterial pressure is 33 mmHg. BP: / HR: Rhythm: MEASUREMENTS (Male / Female) Normal Values Technical Quality: 2D ECHO LV Diastolic Diameter PLAX 4.6 cm 4.2 - 5.9 / 3.9 - 5.3 cm LV Systolic Diameter PLAX 3.5 cm IVS Diastolic Thickness 1.0 cm 0.6 - 1.0 / 0.6 - 0.9 cm LVPW Diastolic Thickness 0.7 cm 0.6 - 1.0 / 0.6 - 0.9 cm LV Relative Wall Thickness 0.4 RV Internal Dim ED PLAX 2.7 cm LA Systolic Diameter LX 4.0 cm 3.0 - 4.0 / 2.7 - 3.8 cm M-MODE Aortic Root Diameter MM 2.8 cm AV Cusp Separation MM 1.7 cm DOPPLER Mitral E Point Velocity 69.1 cm/s Mitral A Point Velocity 66.0 cm/s Mitral E to A Ratio 1.0 TR Peak Velocity 263.0 cm/s TR Peak Gradient 27.7 mmHg FINDINGS LEFT VENTRICLE Normal left ventricular size. Wall thickness is normal. The left ventricular systolic function is normal with an estimated ejection fraction of 55%. RIGHT VENTRICLE Normal right ventricular size and systolic function. LEFT ATRIUM The left atrial size is normal. RIGHT ATRIUM The right atrial size is normal. ATRIAL SEPTUM Normal atrial septal thickness without atrial level shunting by limited color doppler interrogation. AORTA The aortic root and proximal ascending aorta are normal in size on limited imaging. MITRAL VALVE Structurally normal mitral valve. No mitral valve stenosis or regurgitation. AORTIC VALVE Trileaflet aortic valve. No aortic valve stenosis or regurgitation. TRICUSPID VALVE There is trace tricuspid valve regurgitation. The estimated pulmonary arterial pressure is 33 mmHg. PULMONARY VALVE The pulmonary valve is not well visualized. VESSELS The inferior vena cava is normal in size. PERICARDIUM No pericardial effusion. Denia Milligan MD, FACC (Electronically Signed) Final Date:21 January 2018 16:43
[2018-01-21 18:13] LABS: Hemoglobin A1c 5.5 % (4.3-6.0)
[2018-01-21] MEDS: levoFLOXacin 500 MG Tablet PO SCH (19:54)
== END 2018-01-21 20:35 | disposition home or self-care (01) ==
LOC: NEPE 10:33 → NEDA 13:29 → N05 18:04
PROVIDERS: ADMIT Internal Medicine; ATTEND Internal Medicine